=== PATIENT | male | born 1980 | race Caucasian/White ===

== ENCOUNTER 2017-05-20 11:09 | Emergency (ER) | payer SELFPAY ==
[~2017-05-20] VITALS: Ht 175.3 cm; Wt 63.5 kg
[2017-05-20 11:26] VITALS: BP 124/86
[2017-05-20] MEDS ORDERED: IBUPROFEN600 MG ORAL (11:44)
[2017-05-20] MEDS ORDERED: ATIVAN1 MG ORAL (11:44)
[2017-05-20] MEDS ORDERED: Ketorolac 30mg Inj IM ONE (11:45)
--- NOTE | 2017-05-20 12:08 | Emergency Room Report ---
History of Present Illness General Chief Complaint: Chest Pain Source: Patient Present Illness HPI 37-year-old male with history of polysubstance abuse, anxiety, p/w chest pain for one month. Chest pain started while he is doing therapy. Localized to substernal area, no radiation to back or other areas, sharp in nature, gradual in onset, multiple episodes throughout the last month. denies SOB. Worsened with movement or palpation of his chest. His Denies palpitations, diaphoresis, n/v. Denies fever, chills, cough, abd pain, recent viral illness. Denies trauma. Denies cardiac history, smoking, or family history of cardiac disease at a young age. Denies history of PE/DVT, no recent surgeries, prolonged immobilzation, malignancy Allergies: Coded Allergies: PROCAINE (Verified Allergy, Unknown, 05/20/17) Patient History Past Medical History: see triage record Past Surgical History: none Pertinent Family History: none Reviewed Nursing Documentation: PMH: Agreed, PSxH: Agreed Review of Systems All Other Systems: negative except mentioned in HPI Physical Exam Vital Signs Date Time Temp Pulse Resp B/P (MAP) Pulse Ox O2 Delivery O2 Flow Rate FiO2 05/20/17 11:16 98.1 79 20 126/77 98 Room Air Sp02 EP Interpretation: reviewed, normal General Appearance: alert, GCS 15, non-toxic, mild distress Head: normocephalic, atraumatic Eyes: bilateral eye normal inspection, bilateral eye PERRL, bilateral eye EOMI ENT: normal ENT inspection, normal pharynx, normal voice, moist mucus membranes Neck: normal inspection, full range of motion, supple Respiratory: normal inspection, lungs clear, normal breath sounds, no respiratory distress, no retraction, no wheezing, speaking full sentences, chest symmetrical Cardiovascular #1: regular rate, rhythm, no edema, normal capillary refill, other - L sided chest wall tenderness Cardiovascular #2: 2+ radial (R), 2+ radial (L) Gastrointestinal: normal inspection, non tender, soft, non-distended, no guarding Genitourinary: no CVA tenderness Musculoskeletal: normal inspection, back normal, normal range of motion, non- tender Neurologic: normal inspection, alert, oriented x3, responsive, motor strength/ tone normal, sensory intact, normal gait, speech normal Psychiatric: normal inspection, judgement/insight normal, memory normal Skin: normal inspection, normal color, no rash, warm/dry, well hydrated, normal turgor Medical Decision Making Diagnostic Impression: Primary Impression: Chest pain ER Course 37-year-old male p/w chest pain for one month Appears well at bedside Not in acute distress DDX: Musculoskeletal CP/costochondritis vs. pneumothorax vs. gastritis/GERD PE less likely given history and physical examination, not hypoxic/tachycardic, no risk factors, PERC negative. ACS less likely given age/history Plan: NSAIDs, EKG, CXR Anticipate DC home as patient appears clinically well. ER course: Patient was treated NSAIDs with improvement of pain. Patient remains well appearing in ED. Disposition: Patient will be discharged to home with a prescription of motrin and Ativan Strict precautions discussed with patient on when to emergently return to the ED : this includes worsening/severe chest pain, palpitations, shortness of breath, syncopal episodes, fever or chills, which may indicate severe illness. Patient verbalized understanding. Patient instructed to follow up with their PMD within the next 2 days. Patient agrees with plan. Please note that this Emergency Department Report was dictated using [employer] operator adjuster technology software, occasionally this can lead to erroneous entry secondary to interpretation by the dictation equipment. EKG Diagnostic Results EP Interpretation: Yes Rate: normal Rhythm: NSR ST Segments: No acute changes ASA given to patient: n Rhythm Strip EP Interpretation: Yes Rate: 70 Rhythm: NSR, no PVCs, no ectopy Chest X-ray CXR: Ordered: Yes 1 view Indication: Chest pain EP interpretation: Yes Interpretation: No consolidation, no effusion, no PTX, no acute cardiopulmonary disease Impression: No acute disease Electronically signed by Kalli Everett MD Last Vital Signs Date Time Temp Pulse Resp B/P (MAP) Pulse Ox O2 Delivery O2 Flow Rate FiO2 05/20/17 11:26 97.7 69 17 124/86 100 Room Air Disposition: HOME, SELF-CARE Condition: Improved Scripts Lorazepam* (ATIVAN*) 1 Mg Tablet 1 MG ORAL BEDTIME for 7 Days, #7 TAB 0 Refills Prov: Kalli Everett M.D. 05/20/17 Ibuprofen* (MOTRIN*) 600 Mg Tablet 600 MG ORAL Q8H Y for For Pain, #30 TAB 0 Refills Prov: Kalli Everett M.D. 05/20/17 Referrals: NOT CHOSEN IPA/,REFERRING (PCP) Patient Instructions: Nonspecific Chest Pain Kalli Everett M.D. May 20, 2017 12:08
[2017-05-20 12:45] VITALS: BP 119/85
--- NOTE | 2017-05-20 13:14 | Diagnostic Imaging Report ---
Indication: Chest pain Comparison: None A single view chest radiograph was obtained. Findings: Cardiomediastinal appearance is within normal limits for age. Pulmonary vascularity is appropriate. The diaphragmatic contour is smooth and costophrenic angles are sharp. No pleural effusions are identified. The bones are unremarkable. Impression: No acute findings
== END 2017-05-20 12:45 | disposition home or self-care (01) ==
LOC: EMR 11:55
DX: R07.89 Other chest pain (principal)
CPT/HCPCS: 71045; 96372; 99283; J1885